=== PATIENT | male | born 1950 | race Caucasian/White ===

== ENCOUNTER 2016-10-09 16:34 | Outpatient (CLI) | payer MEDICARE, OTHER ==
[~2016-10-09] VITALS: Ht 152.4 cm; Wt 78.1 kg
[~2016-10-09 16:34] MED LIST: HAWTHORN BERRIE1 CAP PO; OLIVE LEAF EXT500 MG PO; VITAMIN C BUFF500 MG PO; VITAMIN D1000 IU PO; [UNRECOGNIZED DRUG - OTHER] PO
[2016-10-09 17:26] VITALS: BP 132/80; PULSE 60; TEMP 98.1
[2016-10-09] MEDS ORDERED: DGL PO (18:31)
[2016-10-09] MEDS ORDERED: GLUCOPHAGE500 MG/TAB PO (18:32)
[2016-10-09] MEDS ORDERED: LEVEMIR FLEX100 U/ML SQ (18:32)
[2016-10-09] MEDS ORDERED: [UNRECOGNIZED DRUG - OTHER] PO (18:33)
[2016-10-09] MEDS ORDERED: CINNAMON PO (18:33)
[2016-10-09] MEDS ORDERED: ZINC PICOLINATE PO (18:34)
== END 2016-10-09 19:54 | disposition home or self-care (01) ==
LOC: EUO 16:34
DX: N28.9 Disorder of kidney and ureter, unspecified (principal); R73.9 Hyperglycemia, unspecified
CPT/HCPCS: J7030

== ENCOUNTER → 2016-10-25 | Outpatient (CLI) | payer MEDICARE, OTHER ==
[~2016-10-25] MED LIST changes: +CINNAMON PO; +DGL PO; +GLUCOPHAGE500 MG/TAB PO; +LEVEMIR FLEX100 U/ML SQ; +ZINC PICOLINATE PO; +[UNRECOGNIZED DRUG - OTHER] PO
== END ==
LOC: SUN.DIA 08:50
DX: E11.65 Type 2 diabetes mellitus with hyperglycemia (principal); Z79.4 Long term (current) use of insulin; Z68.25 Body mass index [BMI] 25.0-25.9, adult; Z71.3 Dietary counseling and surveillance; E78.5 Hyperlipidemia, unspecified
CPT/HCPCS: G0108

== ENCOUNTER → 2016-11-16 | Outpatient (CLI) | payer MEDICARE, OTHER | LOC: SUN.DIA 09:50 | DX: E11.65 Type 2 diabetes mellitus with hyperglycemia (principal); Z79.4 Long term (current) use of insulin; Z79.84 Long term (current) use of oral hypoglycemic drugs; Z68.24 Body mass index [BMI] 24.0-24.9, adult; Z71.3 Dietary counseling and surveillance; E78.5 Hyperlipidemia, unspecified ==

== ENCOUNTER → 2018-01-02 | Outpatient (CLI) | payer MEDICARE, BC | LOC: COL.RAD 14:21 | DX: M54.2 Cervicalgia (principal); M47.812 Spondylosis without myelopathy or radiculopathy, cervical region ==

== ENCOUNTER 2020-12-14 11:13 | Day surgery (SDC) | payer MEDICARE, BC ==
[2020-12-14] VITALS (7 sets, daily range): BP systolic 130–177; BP diastolic 52–88; PULSE 62–78; TEMP 97.7–99
[~2020-12-14 11:13] MED LIST changes: -DGL PO; +MASON NATURAL2000 IU PO; -VITAMIN D1000 IU PO; +[UNRECOGNIZED DRUG - OTHER] PO
[2020-12-14] MEDS ORDERED: ZINC PICOLINATE PO (12:28)
[2020-12-14] MEDS ORDERED: VITAMIN B12 681 TAB PO (12:30)
[2020-12-14] MEDS ORDERED: CARDIO PLUS (12:31)
[2020-12-14] MEDS ORDERED: CATAPLEX B (12:31)
[2020-12-14] MEDS ORDERED: CATAPLEX (12:31)
[2020-12-14] MEDS ORDERED: VITAMIN E PO (12:32)
[2020-12-14] MEDS ORDERED: SELENIUM200 MC5 PO (12:33)
[2020-12-14] MEDS ORDERED: IODORAL PO (12:34)
[2020-12-14] MEDS ORDERED: [UNRECOGNIZED DRUG - OTHER] PO (12:35)
[2020-12-14] MEDS ORDERED: BIOCOMPLETE (12:35)
[2020-12-14] MEDS ORDERED: [UNRECOGNIZED DRUG - OTHER] (12:36)
[2020-12-14] MEDS ORDERED: [UNRECOGNIZED DRUG - OTHER] PO (12:37)
[2020-12-14] MEDS ORDERED: BACILLUS COAGULANS PO (12:37)
[2020-12-14] MEDS ORDERED: FREESTYLE PREC1 EAC5 MC (12:51)
--- NOTE | 2020-12-14 14:30 | NUR ---
1315 Pt returns from endo procedure via cart. Pt ambulates with RN assist from cart to recliner. Pt drowsy but answering all questions appropriately. Monitors on and alarms set. Call light within reach. present in room. Pt denies pain or nausea. Initial question time going over findings in the procedure. All questions answered to their satisfaction, and wait until Dr. Reddy visits them. Pt requests cranberry juice and water. 1330 Pt taking fluids well and has no complaints. 1415 Dr. Reddy in to visit with pt and . 1430 Dr. Reddy finished visiting with pt and .
--- NOTE | 2020-12-14 15:15 | NUR ---
1500-Assumed care of patient and report received from MORENO Queen. 1515-Patient is sitting upright in recliner and doing well. He denies having any abdominal pain or discomfort. Denies having any nausea and is tolerating PO fluids without difficulty. Discussed discharge instructions along with questions/concerns with patient and his . Copy of instructions provided to them. IV site removed from his right hand and cotton ball with coban wrap applied. No active bleeding noted. Patient is getting dressed and ready for discharge home. 1530-Patient discharged home at this time. Taken via wheelchair with his belongings and assisted into private car with his .
== END 2020-12-14 15:30 | disposition home or self-care (01) ==
LOC: SDCO 11:13
DX: C24.0 Malignant neoplasm of extrahepatic bile duct (principal); K83.8 Other specified diseases of biliary tract; R93.3 Abnormal findings on diagnostic imaging of other parts of digestive tract; Z88.8 Allergy status to other drugs, medicaments and biological substances; Z79.4 Long term (current) use of insulin; G47.33 Obstructive sleep apnea (adult) (pediatric); E11.9 Type 2 diabetes mellitus without complications
CPT/HCPCS: C1769; C2625; J2704; J7030; Q9967

== ENCOUNTER → 2020-12-22 | Outpatient (CLI) | payer MEDICARE, BC ==
[~2020-12-22] MED LIST changes: +BACILLUS COAGULANS PO; +BIOCOMPLETE; +CARDIO PLUS; +CATAPLEX; +CATAPLEX B; +FREESTYLE PREC1 EAC5 MC; +GABA; +IODORAL PO; +SELENIUM200 MC5 PO; +VITAMIN B12 681 TAB PO; +VITAMIN E PO; +[UNRECOGNIZED DRUG - OTHER]; +[UNRECOGNIZED DRUG - OTHER]; +[UNRECOGNIZED DRUG - OTHER] PO; +[UNRECOGNIZED DRUG - OTHER] PO
== END ==
LOC: COL.VAS 12:17
DX: R01.1 Cardiac murmur, unspecified (principal); I34.0 Nonrheumatic mitral (valve) insufficiency; I35.0 Nonrheumatic aortic (valve) stenosis; I70.0 Atherosclerosis of aorta

== ENCOUNTER 2021-04-19 11:10 | Day surgery (SDC) | payer MEDICARE, BC ==
[~2021-04-19] VITALS: Ht 180.3 cm; Wt 68.7 kg
[~2021-04-19 11:10] MED LIST changes: -GABA; -[UNRECOGNIZED DRUG - OTHER]
[2021-04-19] MEDS ORDERED: GABA (11:33)
[2021-04-19] MEDS ORDERED: MASON NATURAL2000 IU PO (11:33)
[2021-04-19] MEDS ORDERED: [UNRECOGNIZED DRUG - OTHER] (11:34)
--- NOTE | 2021-04-19 12:10 | NUR ---
PATIENT HAS IMPLANTED BLOOD SUGAR MONITOR SHOWED BLOOD SUGAR --125. PATIENT HAS INSULIN PUMP.
[2021-04-19 13:25] VITALS: BP 127/68; PULSE 63
--- NOTE | 2021-04-19 13:25 | NUR ---
PATIENT TRANSPORTED PER CART FROM GI SU[address] TO BAY 6 ACCOMPANIED BY KRISTY RN. PATIENT AMBULATED FROM CART TO CHAIR ASSISTED BY 2. SLOW STEADY GAIT. MONITORS APPLIED. VSS ON ROOM AIR. PATIENT TALKS WITH STAFF AND . PATIENT GIVEN WATER TO DRINK.
--- NOTE | 2021-04-19 13:27 | NUR ---
PATIENT CHECKED HIS BLOOD SUGAR MONITOR. BLOOD SUGAR --135.
[2021-04-19 13:45] VITALS: BP 138/68; PULSE 54; TEMP 97.7
--- NOTE | 2021-04-19 13:45 | NUR ---
Patient reclined in chair. Alert and oriented. Denies any discomfort. Blood glucose 126. Tolerating food and drink well. Warm blanket provided. Will continue to monitor.
[2021-04-19 14:00] VITALS: BP 142/76; PULSE 54; TEMP 97
[2021-04-19 14:15] VITALS: BP 138/74; PULSE 55
--- NOTE | 2021-04-19 14:15 | NUR ---
Patient asleep, reclined in chair. Wakes easily when entering room. Denies any pain or nausea. Patient education done about advancing diet at home.
[2021-04-19 14:45] VITALS: BP 138/75; PULSE 53; TEMP 98
--- NOTE | 2021-04-19 14:45 | NUR ---
Patient reclined in chair. Alert and oriented. Denies any needs or discomfort.
[2021-04-19 15:15] VITALS: BP 142/75; PULSE 59; TEMP 97.6
--- NOTE | 2021-04-19 15:15 | NUR ---
Patient reclined in chair. Alert and oriented. Patient reports normal BP at home is lower and reports it is normal for BP to be higher when in a medical setting. Advised to retake BP at home and if remains high to speak to primary care physician.
--- NOTE | 2021-04-19 15:30 | NUR ---
Reviewed discharge instructions with patient and , both verbalized understanding. D/C IV with no complications. Instructed patient to dress and open door when ready for transport.
--- NOTE | 2021-04-19 15:40 | NUR ---
Tranporte patient via wheelchair to personal vehicle accompanied by .
--- NOTE | 2021-04-19 15:48 | NUR ---
Patient returned to [facility] via cart. Alert and oriented. Postop vitals started. Water and sugar free jello provided. Blood glucose 135. Will cntinue to monitor.
--- NOTE | 2021-04-19 15:56 | NUR ---
Patient reclined in chair. Alert and oriented. Denies any discomfort. Provided sugar free jello. Will continue to monitor.
== END 2021-04-19 15:40 | disposition home or self-care (01) ==
LOC: SDCO 11:10
DX: C25.9 Malignant neoplasm of pancreas, unspecified (principal); K86.81 Exocrine pancreatic insufficiency; K83.1 Obstruction of bile duct; K31.9 Disease of stomach and duodenum, unspecified; E11.9 Type 2 diabetes mellitus without complications; M19.90 Unspecified osteoarthritis, unspecified site; Z20.822 Contact with and (suspected) exposure to COVID-19; Z79.4 Long term (current) use of insulin; Z79.899 Other long term (current) drug therapy
CPT/HCPCS: C1769; C2625; J7030; Q9967

== ENCOUNTER 2021-12-01 11:50 | Inpatient (IN) | payer MEDICARE, BC ==
[~2021-12-01] VITALS: Ht 177.8 cm; Wt 67.9 kg
[~2021-12-01 11:50] MED LIST changes: +GABA; +[UNRECOGNIZED DRUG - OTHER]
[2021-12-01 12:28] LABS: BASO # 0.1 K/mm3 (0.0-0.2); BASO % 0.7 % (0.0-2.0); EOS # 0.1 K/mm3 (0.0-0.7); EOS % 0.9 % (0.0-4.0); GRAN # 6.1 K/mm3 (1.4-6.5); GRAN % 79.9 % (42.2-75.2); HEMOGLOBIN 11.4 g/dl (13.5-18.0); LYMPH # 0.6 K/mm3 (1.2-3.4); LYMPH % 7.2 % (20.0-51.0); MEAN CELL VOLUME 82 fl (80.0-100.0); MEAN CORPUSCULAR HEMOGLOBIN 28 pg (27-31); MEAN CORPUSCULAR HGB CONC 34 g/dl (33.0-37.0); MEAN PLATELET VOLUME 10.9 fl (7.4-10.4); MONO # 0.8 K/mm3 (0.1-0.6); PLATELET COUNT 188 K/mm3 (130-400); RED BLOOD COUNT 4.09 M/mm3 (4.20-5.60); REDCELL DISTRIBUTION WIDTH-CV 13.1 % (11.5-14.5)
[2021-12-01 12:32] LABS: HEMATOCRIT 33.5 % (42.0-52.0)
[2021-12-01 12:42] LABS: ALANINE AMINOTRANSFERASE 43 U/L (0-55); ALBUMIN 3.2 gm/dL (3.4-4.8); ALKALINE PHOSPHATASE 174 U/L (40-150); ANION GAP 12 mmol/L (7-16); AST,SGOT 30 U/L (5-34); BILIRUBIN,TOTAL 0.8 mg/dL (0.2-1.2); BLOOD UREA NITROGEN 6 mg/dL (8-26); CALCIUM 8.2 mg/dL (8.4-10.2); CARBON DIOXIDE 24 mmol/L (23-31); CHLORIDE 93 mmol/L (98-107); CREATININE, serum 0.78 mg/dL (0.72-1.25); GLUCOSE 177 mg/dL (70-99); LIPASE < 4 U/L (8-78); POTASSIUM 3.6 mmol/L (3.5-4.5); SODIUM 129 mmol/L (136-145); TOTAL PROTEIN 7.1 gm/dL (6.2-8.1)
[2021-12-01] MEDS ORDERED: NOVLOG SQ (14:01)
[2021-12-01 14:40] LABS: COLLECTION METHOD CLEAN CATCH
[2021-12-01 14:46] LABS: PH 6 (5-8); SQUAMOUS EPITHELIAL None Seen /hpf (0-10); URINE APPEARANCE Clear (CLEAR/HAZY); URINE BACTERIA None Seen /hpf (NONE SEEN); URINE BILIRUBIN Negative (NEGATIVE); URINE BLOOD Negative (NEGATIVE); URINE COLOR Yellow (YELLOW); URINE GLUCOSE Negative (NEGATIVE); URINE KETONE Trace (NEGATIVE); URINE LEUKOCYTE ESTERASE Negative (NEGATIVE); URINE NITRATE Negative (NEGATIVE); URINE PROTEIN(semi-quant) Negative (NEGATIVE); URINE RBC 0-2 /hpf (0-2); URINE UROBILINOGEN Negative (NEGATIVE)
--- NOTE | 2021-12-01 16:15 | NUR ---
PATIENT ADMITED INTO ROOM 350 FROM ER WITH ACUTE ABD PAIN. CT SHOWED RUPTURED MARLA. & AT BEDSIDE TO DISCUSS THE PATIENT'S STATUS WITH HIM AND FAMILY. PATIENT HAS HX OF PANCREATIC CANCER BUT USES NATURAL TREATMENT OPTIONS SUCH VITAMINS. AND FAMILY AT BEDSIDE AND STRESS THAT THEY DON'T TAKE ANY VACCINES AND REFUSE ANY COVID TESTING. VSS. AFRBRILE. HOME MEDICATION LIST IS MOSTLY ALL VITAMINS EXCEPT FOR HIS INSULIN. PATIENT IS A TYPE 1 DIABETIC WITH AN INSULIN PUMP. BS IS CURRENTLY 92. NPO. PATIENT TURNED PUMP OFF AN GAVE IT TO HIS . PATIENT REFUSES BLOOD PRODUCTS AND INDICATED ON HIS CONSENT, ON CHART. DNR STATUS. IC GREEN ORDERED FROM PHARMACY AND TO BE GIVEN PRE-OP. HEAD TO TOE ASSESSMENT COMPLETE. IV FLUIDS INFUSING INTO RIGHT FORARM IV. PATIENT GOING DOWN TO SURGERY SOON. ANESTHESIA ALSO AT BEDSIDE.
[2021-12-01 16:30] VITALS: BP 160/77; PULSE 80; TEMP 98.7
[2021-12-01] MEDS ORDERED: DIGESTIVE ENZYMES PO (16:51)
--- NOTE | 2021-12-01 17:00 | NUR ---
PATIENT GOING DOWN TO OR VIA BED. FAMILY ALL AT BEDSIDE. CONSENT ON CHART. PRE-OP IC GREEN GIVEN PER ORDERS.
[2021-12-01 21:09] VITALS: BP 119/66; PULSE 77; TEMP 98
[2021-12-02 00:37] VITALS: BP 127/62; PULSE 74; TEMP 97.9
[2021-12-02 04:05] VITALS: BP 122/54; PULSE 84; TEMP 98.2
[2021-12-02 06:49] LABS: HEMOGLOBIN 10.2 g/dl (13.5-18.0); MEAN CELL VOLUME 85 fl (80.0-100.0); MEAN CORPUSCULAR HEMOGLOBIN 28 pg (27-31); MEAN CORPUSCULAR HGB CONC 33 g/dl (33.0-37.0); MEAN PLATELET VOLUME 10.6 fl (7.4-10.4); PLATELET COUNT 177 K/mm3 (130-400); RED BLOOD COUNT 3.65 M/mm3 (4.20-5.60); REDCELL DISTRIBUTION WIDTH-CV 13.4 % (11.5-14.5)
[2021-12-02 07:03] LABS: HEMATOCRIT 30.9 % (42.0-52.0)
[2021-12-02 07:06] LABS: INR 1.3 (0.8-3.0); PROTHROMBIN TIME 14.6 SECONDS (9.7-12.8)
[2021-12-02 07:14] LABS: ALBUMIN 2.6 gm/dL (3.4-4.8); BILIRUBIN,TOTAL 0.5 mg/dL (0.2-1.2); C-REACTIVE PROTEIN 11.92 mg/dL (0.00-0.50); CALCIUM 8.2 mg/dL (8.4-10.2); CREATININE, serum 0.77 mg/dL (0.72-1.25); POTASSIUM 4.1 mmol/L (3.5-4.5)
[2021-12-02 07:41] LABS: BAND 7 % (0-10); LYMPHOCYTE 15 % (20.0-51.0); NEUTROPHILS 77 % (42.0-75.2)
[2021-12-02 07:43] LABS: OVALOCYTES 1+
[2021-12-02 07:44] LABS: SCHISTOCYTES 1+
[2021-12-02 07:45] LABS: POIKILOCYTOSIS 1+
[2021-12-02 08:00] VITALS: BP 134/62; PULSE 76; TEMP 98.7
[2021-12-02 11:18] VITALS: BP 121/58; PULSE 72; TEMP 98.5
--- NOTE | 2021-12-02 11:50 | NUR ---
First visit from the silk hanger. No needs right now.
--- NOTE | 2021-12-02 12:48 | NUR ---
workers compensation manager met with patient to discuss discharge plan. Patient's Tracy ([phone]) present at bedside. Patient lives at home with his in [facility]. He is fully independent with his ADL's and does not utilize any DME to assist with ambulation. Patient has no home oxygen needs. PCP is Dr. Cross and he utilizes [facility] for medications with no cost difficulty. Patient reports that he does have a DPOA-HC established and that his is his agent. Patient is planning on returning home with no concerns once he is medically ready. Discharge plan: Home
[2021-12-02 15:47] VITALS: BP 110/59; PULSE 64; TEMP 97.9
--- NOTE | 2021-12-02 17:21 | NUR ---
PT'S FIDE DRAIN INCREASING IN CLEAR, STRAW COLORED OUTPUT THIS AFTERNOON, TOTAL OF 690CC THIS SHIFT. PER DR LAKHANI'S NOTES, PT WAS IRRIGATED DURING SURGERY AND IS LIKELY THE SOURCE. DRESSING TO FIDE BECAME SATURATED AND DRESSING WAS CHANGED. NO ACTIVE DRAINAGE NOTED COMING FROM SITE. WILL CONTINUE TO CLOSELY MONITOR OUTPUT FROM DRAIN.
[2021-12-02 21:14] VITALS: BP 124/63; PULSE 79; TEMP 98.3
[2021-12-03] VITALS (7 sets, daily range): BP systolic 107–138; BP diastolic 54–72; PULSE 65–98; TEMP 97.9–99.5
--- NOTE | 2021-12-03 00:19 | NUR ---
Dionisio assessed around 2100. Alert and oriented. Denies having pain and discomfort. Peripheral IV to right forear with fluids running per orders. Received IV ABX per orders. Denies SOB and dyspnea. LS CTA. HRR. BS hypoactive. Denies passing gas. No BM. FIDE to RLQ with straw colored output. See flowsheets for output amounts. Lap sites without redness, warmth, swelling, and pain. Voices no questions, needs, or concerns at this time. In bed with call light within reach.
--- NOTE | 2021-12-03 05:39 | NUR ---
Patient recieved PRN Roxicodone around 0045 as requested for pain. Voices no further questions, needs, or concerns at this time. No BM this shift. Denies passing gas. In bed with call light within reach. Bed alarm on. Continues on IV fluids and ABX per orders.
[2021-12-03 06:21] LABS: INR 1.5 (0.8-3.0); PROTHROMBIN TIME 16.6 SECONDS (9.7-12.8)
[2021-12-03 06:23] LABS: BASO # 0.1 K/mm3 (0.0-0.2); BASO % 0.7 % (0.0-2.0); EOS # 0.3 K/mm3 (0.0-0.7); EOS % 3.7 % (0.0-4.0); GRAN # 5.2 K/mm3 (1.4-6.5); GRAN % 77.5 % (42.2-75.2); HEMOGLOBIN 10.1 g/dl (13.5-18.0); LYMPH # 0.6 K/mm3 (1.2-3.4); LYMPH % 8.7 % (20.0-51.0); MEAN CELL VOLUME 85 fl (80.0-100.0); MEAN CORPUSCULAR HEMOGLOBIN 28 pg (27-31); MEAN CORPUSCULAR HGB CONC 33 g/dl (33.0-37.0); MEAN PLATELET VOLUME 10.5 fl (7.4-10.4); MONO # 0.6 K/mm3 (0.1-0.6); PLATELET COUNT 202 K/mm3 (130-400); RED BLOOD COUNT 3.63 M/mm3 (4.20-5.60); REDCELL DISTRIBUTION WIDTH-CV 13.5 % (11.5-14.5)
[2021-12-03 06:32] LABS: HEMATOCRIT 30.9 % (42.0-52.0)
[2021-12-03 06:54] LABS: ALBUMIN 2.4 gm/dL (3.4-4.8); BILIRUBIN,TOTAL 0.5 mg/dL (0.2-1.2); CALCIUM 8.2 mg/dL (8.4-10.2); CREATININE, serum 0.71 mg/dL (0.72-1.25); POTASSIUM 3.9 mmol/L (3.5-4.5); TOTAL PROTEIN 5.7 gm/dL (6.2-8.1)
--- NOTE | 2021-12-03 10:32 | NUR ---
Patient resting in bed. His at bedside. rounded this am & plan of care reviwed. Patient alert & oriented. He has ambulted the halls with his and did well. Pain was elevated after ambulation and he requested roxicodone for pain rating 8/10. Abdomen soft, bowels audible. He reports belching, denies flatus. Ivf. Scds. FIDE drain to compression. Will monitor.
--- NOTE | 2021-12-03 11:30 | NUR ---
Patient resting in bed. His supportive remains at bedside. Nikos drain putting out an increased amount of output after walk. made aware. We discussed patients elevated pain, second tab of roxicodone given & Iv pain medication avaliable if needed. Will coninue to empty drain as needed.
--- NOTE | 2021-12-03 12:36 | NUR ---
Pain relieved after second tab of oxicodone. He is able to rest more comfortably at this time
--- NOTE | 2021-12-03 13:39 | NUR ---
Patient tolerates clears. Able to rest now that pain is managed. Drain continues to drain large amounts, but is lowing. Ava to Resume cares for the afternoon.
--- NOTE | 2021-12-03 18:14 | NUR ---
Patient ambulated to the bathroom independently. Pain medication given as requested. A&Ox4. VSS. IV CDI, fluids infusing. Lap sites x4 and FIDE drain RLQ CDI. Call light within reach
--- NOTE | 2021-12-03 22:26 | NUR ---
Patient assessed around 1929. Alert and oriented, and able to make needs known. Complained of level 8 pain to abdomen. Given PRN APAP. Peripheral IV to right forearm with IV fluids and ABX running per orders. Denies SOB and dyspnea. LS CTA. HRR. BSAx4. Reports starting to pass gas, no BM. No edema. FIDE drain to RLQ. Continues to have large amount of drainage, straw colored. See flowsheets for output. Around 2139, patient called and reported level 9 sharp, stabbing pain to abdomen. Given PRN Morphine. Also called NEYMAR Gonzalez, and recieved order for Colace. Given per orders. Patient up walking in love with PCT at approximately 2209. Voices no further questions, needs, or concerns at this time.
[2021-12-04 04:17] VITALS: BP 121/71; PULSE 68; TEMP 98
--- NOTE | 2021-12-04 05:56 | NUR ---
Patient has receiving PRN pain medication as requested throughout this shift. See MAR for times. Has gotten up and ambulated in hallways twice this shift. Continues to pass gas, BSAx4. No BM this shift. Continues to have large amount of drainage from FIDE drain. See flowsheets for amounts. Voices no questions, needs, or concerns at this time. In bed with call light within reach. Continues on IV fluids and ABX per orders.
[2021-12-04 06:10] LABS: BASO % 0.7 % (0.0-2.0); EOS # 0.4 K/mm3 (0.0-0.7); EOS % 6.8 % (0.0-4.0); GRAN # 4.2 K/mm3 (1.4-6.5); GRAN % 70.9 % (42.2-75.2); HEMOGLOBIN 10.2 g/dl (13.5-18.0); LYMPH # 0.7 K/mm3 (1.2-3.4); LYMPH % 11.6 % (20.0-51.0); MEAN CELL VOLUME 86 fl (80.0-100.0); MEAN CORPUSCULAR HEMOGLOBIN 28 pg (27-31); MEAN CORPUSCULAR HGB CONC 33 g/dl (33.0-37.0); MEAN PLATELET VOLUME 10.5 fl (7.4-10.4); MONO # 0.6 K/mm3 (0.1-0.6); MONO % 9.5 % (1.7-9.3); PLATELET COUNT 249 K/mm3 (130-400); RED BLOOD COUNT 3.65 M/mm3 (4.20-5.60); REDCELL DISTRIBUTION WIDTH-CV 13.5 % (11.5-14.5)
[2021-12-04 06:14] LABS: HEMATOCRIT 31.3 % (42.0-52.0)
[2021-12-04 06:23] LABS: INR 1.5 (0.8-3.0); PROTHROMBIN TIME 16.2 SECONDS (9.7-12.8)
[2021-12-04 06:30] LABS: ALBUMIN 2.5 gm/dL (3.4-4.8); BILIRUBIN,TOTAL 0.4 mg/dL (0.2-1.2); CREATININE, serum 0.69 mg/dL (0.72-1.25); POTASSIUM 3.6 mmol/L (3.5-4.5); TOTAL PROTEIN 5.8 gm/dL (6.2-8.1)
[2021-12-04 08:00] VITALS: BP 128/72; PULSE 75; TEMP 98.1
--- NOTE | 2021-12-04 08:02 | NUR ---
Pt doing okay this am. he stated that his pain was okay and then started to have some abd spasms that come and go. FIDE drain emptied, serous output. Removed SCDs and assisted pt to the restroom. Pt did well, although slow with weak gait. Pt aware that he is still clear liquid diet. Educated plan will be for ambulation every 2 hours, pt agreeable with this. Pt denies any other needs, call light within reach
[2021-12-04 11:54] VITALS: BP 120/70; PULSE 74; TEMP 98
[2021-12-04 15:47] VITALS: BP 114/63; PULSE 70; TEMP 98.2
--- NOTE | 2021-12-04 19:05 | NUR ---
PT has done well throughout the day. He was up ambulating several times. Pain was well controlled for most of the day. Had brief time this am where he did require IV pain medication. Pts was present all day and had some other family members stop by. Pt tolerated the low fiber diet. FIDE continued to put out significant amount of serous fluids
[2021-12-04 20:28] VITALS: PULSE 65; TEMP 97.8
--- NOTE | 2021-12-04 21:30 | NUR ---
Pt. sitting up in bed. Pt. is a&OX3, assessment complete. INT to rt. ac patent. ABD. incisions x4 well approximated. FIDE drain to rt. abd. with serous drainage noted. Pt. reports pain at a 7 on pain scale, gave pain meds per orders. Pt. denies further needs, call light within reach.
[2021-12-04 23:22] VITALS: BP 95/58; PULSE 66; TEMP 98.4
[2021-12-05 03:48] VITALS: BP 115/652; PULSE 77; TEMP 98.2
[2021-12-05 07:39] VITALS: BP 117/61; PULSE 96; TEMP 98.4
--- NOTE | 2021-12-05 09:36 | NUR ---
Patient resting in bed. Eating his breakfast. Nikos drain remains to compression. Abdomen soft, abdominal lap site edges well approximated. Int. Pain rating increased with activity. Will monitor.
[2021-12-05 11:48] VITALS: BP 105/65; PULSE 71; TEMP 97.7
[2021-12-05 12:37] LABS: ALBUMIN 2.5 gm/dL (3.4-4.8); BAND 2 % (0-10); BILIRUBIN,TOTAL 0.5 mg/dL (0.2-1.2); CALCIUM 8.2 mg/dL (8.4-10.2); CREATININE, serum 0.8 mg/dL (0.72-1.25); EOSINOPHIL 10 % (0-4); LYMPHOCYTE 10 % (20.0-51.0); NEUTROPHILS 71 % (42.0-75.2); PLATELET ESTIMATE NORMAL (NORMAL); POTASSIUM 4.2 mmol/L (3.5-4.5); TOTAL PROTEIN 6.1 gm/dL (6.2-8.1)
[2021-12-05 12:39] LABS: HEMOGLOBIN 10.4 g/dl (13.5-18.0); MEAN CELL VOLUME 85 fl (80.0-100.0); MEAN CORPUSCULAR HEMOGLOBIN 28 pg (27-31); MEAN CORPUSCULAR HGB CONC 32 g/dl (33.0-37.0); MEAN PLATELET VOLUME 9.6 fl (7.4-10.4); PLATELET COUNT 291 K/mm3 (130-400); RED BLOOD COUNT 3.78 M/mm3 (4.20-5.60); REDCELL DISTRIBUTION WIDTH-CV 13.5 % (11.5-14.5)
[2021-12-05 12:42] LABS: HEMATOCRIT 32.1 % (42.0-52.0)
--- NOTE | 2021-12-05 13:07 | NUR ---
Patient sitting up in chair. Tolerating lunch. at bedside. rounded & plan of care reviewed.
--- NOTE | 2021-12-05 15:45 | NUR ---
Dionisio resting in bed. at bedside. They have been ambulating in the halls. African concenered about Roxicodone slowing his bowel, he is wanting to try to avoid using it if he is able. Will monitor.
[2021-12-05 15:46] VITALS: BP 104/60; PULSE 65; TEMP 98
--- NOTE | 2021-12-05 18:58 | NUR ---
Patient resting in bed. He did well with dinner. Reports abdominal spasm, roxicodone for pain per request. FIDE drain to compression. Solomon to resume cares.
[2021-12-05 19:35] VITALS: BP 108/62; PULSE 65; TEMP 99.2
--- NOTE | 2021-12-05 20:20 | NUR ---
Pt. sitting up in bed. Pt. is A&OX3, assessment complete. INT to rt. forearm patent. Pt. reports pain at a 2 on pain scale after roxicodone. Giving Tylenol to continue pain control. Abd. incisions CDI. FIDE drain with serous drainage noted. Pt. denies further needs, call light within reach.
[2021-12-05 23:15] VITALS: BP 108/61; PULSE 68; TEMP 98.4
[2021-12-06 03:57] VITALS: BP 120/67; PULSE 74; TEMP 98.1
[2021-12-06 06:18] LABS: BASO % 0.3 % (0.0-2.0); EOS # 0.3 K/mm3 (0.0-0.7); EOS % 7.3 % (0.0-4.0); GRAN # 2.8 K/mm3 (1.4-6.5); GRAN % 69.9 % (42.2-75.2); LYMPH # 0.5 K/mm3 (1.2-3.4); LYMPH % 12.6 % (20.0-51.0); MEAN CELL VOLUME 85 fl (80.0-100.0); MEAN CORPUSCULAR HGB CONC 32 g/dl (33.0-37.0); MONO # 0.4 K/mm3 (0.1-0.6); MONO % 9.1 % (1.7-9.3); PLATELET COUNT 278 K/mm3 (130-400); RED BLOOD COUNT 3.61 M/mm3 (4.20-5.60); REDCELL DISTRIBUTION WIDTH-CV 13.4 % (11.5-14.5)
[2021-12-06 06:23] LABS: HEMATOCRIT 30.7 % (42.0-52.0); HEMOGLOBIN 9.9 g/dl (13.5-18.0); MEAN CORPUSCULAR HEMOGLOBIN 27 pg (27-31)
[2021-12-06 06:32] LABS: CREATININE, serum 0.7 mg/dL (0.72-1.25); POTASSIUM 4.1 mmol/L (3.5-4.5)
[2021-12-06 08:00] VITALS: BP 146/72; PULSE 82; TEMP 98.3
--- NOTE | 2021-12-06 08:00 | NUR ---
FIDE DRAIN EMPTIED. 95 ML DRAINAGE.
--- NOTE | 2021-12-06 10:50 | NUR ---
FIDE DRAIN EMPTIED, 100ML DRAINED.
--- NOTE | 2021-12-06 11:49 | NUR ---
PATIENT REPORTS SOFT FORMED BM TODAY
[2021-12-06 12:00] VITALS: BP 107/72; PULSE 96; TEMP 97.4
--- NOTE | 2021-12-06 12:30 | NUR ---
FIDE DRAINED EMPTIED, 110ML DRAINED.
--- NOTE | 2021-12-06 14:11 | NUR ---
PT notified this SW that the patient will need a FWW upon discharge. SW met with patient to discuss this recommendation. Patient would like order sent to [facility]. Clinical information and signed DME order faxed to [facility]. SW presented patient with MCR.IM form. Education provided and patient has no concerns with possible discharge in the next 24-48 hours. Patients signed original placed in the patient's chart and copy provided back to the patient.
--- NOTE | 2021-12-06 14:24 | NUR ---
SW touched base with the patient and his after surgeon rounding about the need for home health. Patient states that she feels like his drain is something she can do and that home health would not be needed. states that she would like for the patient's RN to watch her one time do it herself prior to discharge. Patient's RN notified.
[2021-12-06] MEDS ORDERED: AMOXICILLIN 8751 TAB PO (14:26)
[2021-12-06] MEDS ORDERED: ROXICODONE 55 MG/TAB PO (14:40)
--- NOTE | 2021-12-06 15:08 | NUR ---
FIDE DRAINED EMPTIED BY SPOUSE FOR TEACHING PURPROSES TO PREPARE FOR DISCHARGE. SPOUSE OBSERVED NURSE DRAINING 3 TIMES PRIOR AND COMPLETED DRAINING ON OWN SUCCESSFULLY. TEACHING GIVEN ON WHAT DRAINAGE SHOULD LOOK LIKE, SIGNS FOR INFECTION TO LOOK FOR AND WHEN TO NOTIFY SURGEON OR GO TO ER.
[2021-12-06 15:35] VITALS: BP 118/62; PULSE 62; TEMP 98
--- NOTE | 2021-12-06 16:19 | NUR ---
DISCHARGE TEACHING GIVEN BY THIS RN TO PATIENT AND FAMILY. ALL QUESTIONS ANSWERED. PATIENT ESCORTED OUT OF BUILDING BY AID. STABLE CONDITION.
== END 2021-12-06 16:20 | disposition home or self-care (01) | DRG 853 ==
LOC: COL.ER 11:50 → SURG 15:36
PROVIDERS: Emergency Medicine; Physician Assistant; Surgery; ADMIT Internal Medicine
PROC: 8E0W4CZ Robotic Assisted Procedure of Trunk Region, Percutaneous Endoscopic Approach (ICD-10-PCS; 2021-12-01)
PROC: 0FT44ZZ Resection of Gallbladder, Percutaneous Endoscopic Approach (ICD-10-PCS; principal; 2021-12-01 17:00)
DX: A41.9 Sepsis, unspecified organism (principal); K65.3 Choleperitonitis; K82.A2 Perforation of gallbladder in cholecystitis; C25.9 Malignant neoplasm of pancreas, unspecified; E87.1 Hypo-osmolality and hyponatremia; K91.89 Other postprocedural complications and disorders of digestive system; K56.7 Ileus, unspecified; K82.A1 Gangrene of gallbladder in cholecystitis; E10.9 Type 1 diabetes mellitus without complications; Z66 Do not resuscitate; K22.70 Barrett's esophagus without dysplasia; E86.0 Dehydration; Y83.8 Other surgical procedures as the cause of abnormal reaction of the patient, or of later complication, without mention of misadventure at the time of the procedure
CPT/HCPCS: 99223-AI; 99232-AI; 99233-AI; 99239; C9113; J0690; J1170; J1650; J1815; J2270; J2405; J2543; J2704; J2710; J3010; J7030; J7120; Q9967

== ENCOUNTER 2022-01-11 09:56 | Emergency (ER) | payer MEDICARE, BC ==
[~2022-01-11] VITALS: Ht 177.8 cm; Wt 64.5 kg
[~2022-01-11 09:56] MED LIST changes: +AMOXICILLIN 8751 TAB PO; +DIGESTIVE ENZYMES PO; +NOVLOG SQ; +ROXICODONE 55 MG/TAB PO
[2022-01-11 10:38] LABS: BASO % 0.7 % (0.0-2.0); EOS # 0.1 K/mm3 (0.0-0.7); EOS % 2.7 % (0.0-4.0); GRAN # 3.3 K/mm3 (1.4-6.5); GRAN % 74.6 % (42.2-75.2); HEMOGLOBIN 10.3 g/dl (13.5-18.0); LYMPH # 0.5 K/mm3 (1.2-3.4); LYMPH % 10.8 % (20.0-51.0); MEAN CELL VOLUME 85 fl (80.0-100.0); MEAN CORPUSCULAR HEMOGLOBIN 28 pg (27-31); MEAN CORPUSCULAR HGB CONC 33 g/dl (33.0-37.0); MEAN PLATELET VOLUME 10.2 fl (7.4-10.4); MONO # 0.5 K/mm3 (0.1-0.6); PLATELET COUNT 179 K/mm3 (130-400); RED BLOOD COUNT 3.69 M/mm3 (4.20-5.60); REDCELL DISTRIBUTION WIDTH-CV 15.3 % (11.5-14.5)
[2022-01-11 10:39] LABS: HEMATOCRIT 31.5 % (42.0-52.0)
[2022-01-11 10:53] LABS: COLLECTION METHOD CLEAN CATCH
[2022-01-11 10:54] LABS: ALBUMIN 3.1 gm/dL (3.4-4.8); BILIRUBIN,TOTAL 1.3 mg/dL (0.2-1.2); CALCIUM 8.5 mg/dL (8.4-10.2); CREATININE, serum 0.77 mg/dL (0.72-1.25); TOTAL PROTEIN 6.6 gm/dL (6.2-8.1)
[2022-01-11 12:14] LABS: MUCOUS Present (NOT PRESENT); PH 6 (5-8); SQUAMOUS EPITHELIAL None Seen /hpf (0-10); URINE APPEARANCE Hazy (CLEAR/HAZY); URINE BACTERIA None Seen /hpf (NONE SEEN); URINE BILIRUBIN Negative (NEGATIVE); URINE BLOOD Negative (NEGATIVE); URINE COLOR Yellow (YELLOW); URINE GLUCOSE Negative (NEGATIVE); URINE KETONE Trace (NEGATIVE); URINE LEUKOCYTE ESTERASE Negative (NEGATIVE); URINE NITRATE Negative (NEGATIVE); URINE PROTEIN(semi-quant) Negative (NEGATIVE); URINE RBC 0-2 /hpf (0-2); URINE UROBILINOGEN Negative (NEGATIVE)
[2022-01-11] MEDS ORDERED: AMOXICILLIN 8751 TAB PO (12:39)
[2022-01-11 13:23] VITALS: BP 140/78; PULSE 71; TEMP 98.2
== END 2022-01-11 13:23 | disposition home or self-care (01) ==
LOC: COL.ER 09:56
PROVIDERS: Emergency Medicine
DX: K52.9 Noninfective gastroenteritis and colitis, unspecified (principal); D64.9 Anemia, unspecified; D72.819 Decreased white blood cell count, unspecified; E87.1 Hypo-osmolality and hyponatremia; E80.7 Disorder of bilirubin metabolism, unspecified; R74.01 Elevation of levels of liver transaminase levels; R74.8 Abnormal levels of other serum enzymes; Z90.49 Acquired absence of other specified parts of digestive tract; Z28.310 Unvaccinated for COVID-19
CPT/HCPCS: J7030; Q9967

== ENCOUNTER 2022-04-28 09:36 | Day surgery (SDC) | payer MEDICARE, BC ==
[~2022-04-28] VITALS: Ht 177.8 cm; Wt 71.6 kg
[2022-04-28 10:19] VITALS: BP 114/74; PULSE 88; TEMP 97.7
[2022-04-28] MEDS ORDERED: PHARMASSURE ZIN50 MG PO (10:26)
[2022-04-28] MEDS ORDERED: TURMERIC500 MG PO (10:26)
[2022-04-28] MEDS ORDERED: MAGNESIUM500 MG PO (10:27)
[2022-04-28] MEDS ORDERED: LASIX 20MG TABL20 MG PO (10:32)
[2022-04-28 10:50] VITALS: BP 112/67; PULSE 71; TEMP 98
[2022-04-28 11:05] VITALS: BP 101/60; PULSE 71
[2022-04-28 11:20] VITALS: BP 119/64; PULSE 69
--- NOTE | 2022-04-28 11:45 | NUR ---
1050-PT AMBULATED TO CHAIR. AOX3. DENIES ANY N/V. 1108-DR IN ROOM TO DISCUSS PROCEDURE RESULTS. 1130-IV DC'D 1135-DISCHARGE EDUCATION COMPLETED. VERBALIZED UNDERSTANDING. 1145-PT OFF UNIT PER WHEELCHAIR. PT DISCHARGED TO HOME WITH FAMILY PER PERSONAL VEHICLE.
== END 2022-04-28 11:45 | disposition home or self-care (01) ==
LOC: SDCO 09:36
DX: K21.01 Gastro-esophageal reflux disease with esophagitis, with bleeding (principal); K22.70 Barrett's esophagus without dysplasia; K21.9 Gastro-esophageal reflux disease without esophagitis; K25.4 Chronic or unspecified gastric ulcer with hemorrhage; D50.0 Iron deficiency anemia secondary to blood loss (chronic); T18.3XXA Foreign body in small intestine, initial encounter; K31.89 Other diseases of stomach and duodenum; G47.33 Obstructive sleep apnea (adult) (pediatric); E10.9 Type 1 diabetes mellitus without complications; Z79.4 Long term (current) use of insulin; Z96.41 Presence of insulin pump (external) (internal); Z85.07 Personal history of malignant neoplasm of pancreas; Z28.310 Unvaccinated for COVID-19; Z28.9 Immunization not carried out for unspecified reason
CPT/HCPCS: J2704; J7030